=== PATIENT | female | born 1980 | race Caucasian/White ===

== ENCOUNTER 2023-08-10 19:35 | Emergency (ER) | payer BC ==
[~2023-08-10] VITALS: Ht 149.9 cm; Wt 68.2 kg
[2023-08-10 19:42] VITALS: TEMP 97
[2023-08-10] MEDS ORDERED: methylPREDNISolone Sod Succ 125 MG/2 ML VIAL IM ONE (20:30)
[2023-08-10] MEDS ORDERED: Albuterol/Ipratropium 3 MG-0.5 MG/3 ML Neb Soln IH ONE (20:30)
[2023-08-10] MEDS ORDERED: PREDNISONE20 MG PO (22:12)
[2023-08-10] MEDS ORDERED: IPRATROPIUM BROM3 M1 IH (22:12)
[2023-08-10] MEDS ORDERED: NEB MC (22:13)
[2023-08-10 22:18] VITALS: BP 120/86; PULSE 76
== END 2023-08-10 22:18 | disposition home or self-care (01) ==
LOC: COL.ER 19:35
DX: J45.20 Mild intermittent asthma, uncomplicated (principal)
CPT/HCPCS: J2919

== ENCOUNTER → 2023-10-28 | Outpatient (CLI) | payer BC ==
[~2023-10-28] MED LIST: Albuterol 0.083% Neb Soln 2.5 MG/3 ML UD IH ONE; IPRATROPIUM BROM3 M1 IH; Methacholine Vial A (Clear Label Base-Cntrl) IH ONE; Methacholine Vial B (Red Label) 0.0625 MG/ML 3 ML VIAL.NEB IH ONE; Methacholine Vial C (Orange Label) 0.25 MG/ML 3 ML VIAL.NEB IH ONE; Methacholine Vial D (Yellow Label) 1 MG/ML 3 ML VIAL.NEB IH ONE; Methacholine Vial E (Green Label) 4 MG/ML 3 ML VIAL.NEB IH ONE; Methacholine Vial F (Blue Label) 16 MG/ML 3 ML VIAL.NEB IH ONE; NEB MC; PREDNISONE20 MG PO
== END ==
LOC: COL.CARD 06:08
DX: Z87.09 Personal history of other diseases of the respiratory system (principal)
CPT/HCPCS: J7674